=== PATIENT | female | born 1965 | race Asian ===

== ENCOUNTER → 2017-02-27 | Outpatient (CLI) | payer BC | LOC: FIMAGING 15:48 | DX: Z12.31 Encounter for screening mammogram for malignant neoplasm of breast (principal) | CPT/HCPCS: G0202 ==

== ENCOUNTER → 2018-02-28 | Outpatient (CLI) | payer BC | LOC: FIMAGING 15:25 | PROVIDERS: ATTEND Internal Medicine | DX: Z12.31 Encounter for screening mammogram for malignant neoplasm of breast (principal) ==

== ENCOUNTER → 2019-03-04 | Outpatient (CLI) | payer BC | LOC: FIMAGING 15:42 | PROVIDERS: ATTEND Family Medicine | DX: Z12.31 Encounter for screening mammogram for malignant neoplasm of breast (principal) ==